=== PATIENT | female | born 1955 | race Caucasian/White ===

== ENCOUNTER 2016-12-17 17:49 | Observation (INO) | payer OTHER ==
[~2016-12-17] VITALS: Ht 157.5 cm; Wt 74.1 kg
[~2016-12-17 17:49] MED LIST: ARIMIDEX1 MG PO; ARTANE2 MG PO; ASPIRIN81 M2 PO; ATIVAN0.5 MG PO; CALCIUM 500 MG1 EACH PO; CALCIUM CITRAT200 MG PO; CALCIUM CITRATE; CALTRATE 600600 MG PO; CELECOXIB200 MG PO; CHILDREN'S CHE1 EAC1 PO; CYANOCOBALAM1000 MCG PO; DAILY MULTIPLE1 EACH PO; DICLOFENAC SODI75 MG PO; FLEXERIL5 MG PO; FLONASE16 G1 BOTH NARES; GABAPENTIN600 MG PO; GEODON60 MG PO; HYDROCODON-ACE1 EAC7 PO; IBUPROFEN600 MG PO; INDERAL LA120 MG PO; IRON325 M1 PO; LEXAPRO10 MG PO; LO-DOSE ASPIRIN81 M1 PO; LORAZEPAM0.5 MG PO; LORAZEPAM1 MG PO; LOVENOX40 MG/0.4 SC; MELATONIN5 M1 PO; NASONEX17 GM BOTH NARES; NEXIUM40 MG PO; PERCOCET 5/31 TABLET PO; PROAIR HFA8.5 GM IH; PROLIA60 MG/1 ML SC; PROMETHAZINE HC25 M1 PO; SENNA-TIME S T1 EACH PO; SINGULAIR10 MG PO; SKELAXIN800 MG PO; SYNTHROID25 MCG PO; TRIHEXYPHENIDYL2 MG PO; TYLENOL WITH C1 EACH PO; VALIUM5 MG PO; VITAMIN D3; VITAMIN D32000 UNIT PO; VITAMIN E400 UNIT PO; XANAX1 MG PO
[2016-12-17 19:00] LABS: AMPHETAMINE NEGATIVE (500 ng/mL); BARBITURATES NEGATIVE (200 ng/mL); BENZODIAZEPINES PRESUMPTIVE POSITIVE (150 ng/mL); COCAINE NEGATIVE (150 ng/mL); METHADONE NEGATIVE (200 ng/mL); METHAMPHETAMINE NEGATIVE (500 ng/mL); OPIATES (MORPHINE) PRESUMPTIVE POSITIVE (100 ng/mL); OXYCODONE NEGATIVE (100 ng/mL); PHENCYCLIDINE NEGATIVE (25 ng/mL); PROPOXYPHENE NEGATIVE (300 ng/mL); THC CANNABINOIDS NEGATIVE (50 ng/mL); TRICYCLIC ANTIDEPRESSANTS NEGATIVE (300 ng/mL)
[2016-12-17 19:01] LABS: ADD MEDTOX COMMENT Y; INTERNAL CONTROLS VALID? YES
[2016-12-17 19:27] LABS: HEMATOCRIT 34.7 % (36.0-46.0); MCV 85.3 FL (83-99); MEAN PLAT.VOLUME 8.9 uM^3 (9.5-12.4); PLATELET COUNT 289 K/uL (156-360); RBC DIS.WIDTH-CV 13.2 % (11.8-14.6); RBC DIS.WIDTH-SD 40.9 % (39-53); RED BLOOD COUNT 4.07 M/uL (3.80-5.20); WHITE BLOOD COUNT 6.8 K/uL (4.1-10.2)
[2016-12-17 19:41] LABS: BENZODIAZEPINES QUANT VALUE 0 NG/ML; BENZODIAZEPINES, URINE SCREEN Negative (200 ng/mL)
[2016-12-17 19:46] LABS: CHLORIDE 95 mEq/L (99-109); POTASSIUM 3.5 mEq/L (3.7-5.4); SODIUM 126 mEq/L (136-147)
[2016-12-17 19:48] LABS: GLUCOSE 95 mg/dL (70-99)
[2016-12-17 19:49] LABS: ANION GAP 7 MEQ/L (2-14)
[2016-12-17 19:51] LABS: SERUM ETHYL ALCOHOL < 10 mg/dL
[2016-12-17 19:52] LABS: GFR ESTIMATE (CALCULATED) > 59 mL/min/
[2016-12-17 19:53] LABS: UREA NITROGEN (BUN) 8 mg/dL (9-23)
[2016-12-17] MEDS ORDERED: BACLOFEN10 MG PO (23:04)
[2016-12-17] MEDS ORDERED: MEDROL4 MG PO (23:11)
[2016-12-17] MEDS ORDERED: ZOFRAN4 MG PO (23:11)
[2016-12-17] MEDS ORDERED: NYSTATIN-TRIAMC15 G1 TP (23:18)
[2016-12-17] MEDS ORDERED: PROPRANOLOL HCL10 MG PO (23:18)
[2016-12-17] MEDS ORDERED: VITAMIN D2000 UNIT PO (23:25)
[2016-12-17] MEDS ORDERED: VITAMIN B-122500 MCG SL (23:28)
[2016-12-17] MEDS ORDERED: LISINOPRIL10 MG PO (23:28)
[2016-12-17] MEDS ORDERED: LYRICA75 MG PO (23:29)
[2016-12-17] MEDS ORDERED: TYLENOL WITH C1 EACH PO (23:33)
[2016-12-17] MEDS ORDERED: HYDROCODON-ACE1 EAC7 PO (23:34)
[2016-12-17] MEDS ORDERED: FLEXERIL5 MG PO (23:34)
[2016-12-17] MEDS ORDERED: MECLIZINE HCL25 MG PO (23:35)
[2016-12-17] MEDS ORDERED: MOBIC7.5 MG PO (23:35)
[2016-12-17] MEDS ORDERED: STOOL SOFTENER100 M1 PO (23:37)
[2016-12-18 01:29] VITALS: BP 124/72
[2016-12-18 04:30] VITALS: BP 148/71
[2016-12-18 06:42] LABS: ANION GAP 10 MEQ/L (2-14); CHLORIDE 102 MEQ/L (99-109); GFR ESTIMATE (CALCULATED) > 59 mL/min/; GLUCOSE 100 mg/dL (70-99); POTASSIUM 3.9 MEQ/L (3.7-5.4); SAMPLE HEMOLYSIS CHECK 0; SAMPLE ICTERIC CHECK 0; SAMPLE LIPEMIA CHECK 0; UREA NITROGEN (BUN) 6 mg/dL (9-23)
[2016-12-18 06:44] LABS: SODIUM 136 MEQ/L (136-147)
[2016-12-18 07:03] VITALS: BP 126/58
[2016-12-18 12:33] VITALS: BP 131/73
[2016-12-20] MEDS ORDERED: GEODON60 MG PO (09:25)
== END 2016-12-18 13:58 ==
LOC: EME 17:49 → EDOF 12-18 00:28 → 5WEST 12-18 01:14
PROVIDERS: Hospitalist
DX: E87.1 Hypo-osmolality and hyponatremia (principal); R11.2 Nausea with vomiting, unspecified; F99 Mental disorder, not otherwise specified; I10 Essential (primary) hypertension; Z91.5 Personal history of self-harm; K21.9 Gastro-esophageal reflux disease without esophagitis; M19.90 Unspecified osteoarthritis, unspecified site; Z85.3 Personal history of malignant neoplasm of breast; E03.9 Hypothyroidism, unspecified; Z82.49 Family history of ischemic heart disease and other diseases of the circulatory system; Z88.2 Allergy status to sulfonamides; Z91.09 Other allergy status, other than to drugs and biological substances
CPT/HCPCS: 70450; 80048; 83930; 83935; 84300; 84443; 84999; 85027; 90839; 99281; 99285; G0378; G0480; J1650; J2765; J3360; J7030; J7509; S0028

== ENCOUNTER 2017-01-02 21:26 | Emergency (ER) | payer OTHER ==
[~2017-01-02] VITALS: Ht 157.5 cm; Wt 73.8 kg
[~2017-01-02 21:26] MED LIST changes: +BACLOFEN10 MG PO; +LISINOPRIL10 MG PO; +LYRICA75 MG PO; +MECLIZINE HCL25 MG PO; +MEDROL4 MG PO; +MOBIC7.5 MG PO; +NYSTATIN-TRIAMC15 G1 TP; +PROPRANOLOL HCL10 MG PO; +STOOL SOFTENER100 M1 PO; +VITAMIN B-122500 MCG SL; +VITAMIN D2000 UNIT PO; +ZOFRAN4 MG PO
[2017-01-02 22:51] LABS: HEMATOCRIT 37.3 % (36.0-46.0); MCH 28.9 PG (29.0-34.0); MCV 87.8 FL (83-99); MEAN PLAT.VOLUME 9.8 uM^3 (9.5-12.4); PLATELET COUNT 252 K/uL (156-360); RBC DIS.WIDTH-CV 14.4 % (11.8-14.6); RBC DIS.WIDTH-SD 46.3 % (39-53); RED BLOOD COUNT 4.25 M/uL (3.80-5.20); WHITE BLOOD COUNT 8.3 K/uL (4.1-10.2)
[2017-01-02 23:01] LABS: CHLORIDE 112 mEq/L (99-109); POTASSIUM 4.5 mEq/L (3.7-5.4); SODIUM 145 mEq/L (136-147)
[2017-01-02 23:03] LABS: GLUCOSE 116 mg/dL (70-99)
[2017-01-02 23:05] LABS: ANION GAP 12 MEQ/L (2-14); TOTAL BILIRUBIN 0.3 mg/dL (0.0-1.0)
[2017-01-02 23:07] LABS: ALKALINE PHOSPHATASE 66 IU/L (3-129); GFR ESTIMATE (CALCULATED) > 59 mL/min/
[2017-01-02 23:08] LABS: UREA NITROGEN (BUN) 14 mg/dL (9-23)
[2017-01-02 23:10] LABS: LIPASE 31 U/L (1.0-51.0)
[2017-01-02 23:31] LABS: ADD MIUA? NO; BILIRUBIN NEGATIVE; BLOOD NEGATIVE; COLOR YELLOW ((YELLOW)); GLUCOSE (STRIP) NEGATIVE; KETONES NEGATIVE; LEUKOCYTES NEGATIVE; NITRITE NEGATIVE; PROTEIN (STRIP) 30; SPECIFIC GRAVITY 1.015 (1.000-1.030); UCUL ADDED? NO; UROBILINOGEN 0.2 MG/DL (0.2-1.0)
[2017-01-02] MEDS ORDERED: ZOFRAN4 MG PO (23:38)
[2017-01-02 23:57] VITALS: BP 135/57
== END 2017-01-02 23:59 | disposition home or self-care (01) ==
LOC: EME 21:26 → EXP 21:26
PROVIDERS: Physician Assistant
DX: R11.2 Nausea with vomiting, unspecified (principal); R19.7 Diarrhea, unspecified; Z85.3 Personal history of malignant neoplasm of breast; Z79.82 Long term (current) use of aspirin
CPT/HCPCS: 80053; 81003; 83690; 85027; 99281; 99283; J2550